=== PATIENT | female | born 1955 | race Caucasian/White ===

== ENCOUNTER → 2019-06-27 16:05 | Outpatient (BNVA) | payer BC, SELFPAY | PROVIDERS: Visit Provider Family Medicine | DX: J45.40 Moderate persistent asthma, uncomplicated (principal); E78.5 Hyperlipidemia, unspecified; F17.219 Nicotine dependence, cigarettes, with unspecified nicotine-induced disorders; N95.2 Postmenopausal atrophic vaginitis | CPT/HCPCS: 36415; 80053 ==

== ENCOUNTER 2019-08-23 09:44 | Outpatient (CLI) | payer BC, SELFPAY ==
--- NOTE | 2019-08-23 10:10 | PFTS_ITS ---
Date of Study:08/23/2019 Date of Dictation: MECHANICS: Forced vital capacity (FVC) is normal. Forced expiratory volume in one second (FEV1) is reduced. FEV1/FVC is reduced. FLOW VOLUME LOOP: Reduced flow at all lung volumes with scooping. LUNG VOLUMES: Not measured DIFFUSING CAPACITY FOR CARBON MONOXIDE: Not measured. INTERPRETATION: The spirometry is consistent with moderate airflow obstruction without any significant postbronchodilator response. MTDD
--- NOTE | 2019-08-23 10:36 | MM_ITS ---
WS: [id number] BILATERAL DIGITAL SCREENING MAMMOGRAPHY WITH CAD CLINICAL INFORMATION: SCREENING HISTORY: Screening mammogram. No current complaints. COMPARISON: June 14, 2018 TECHNIQUE: Bilateral CC and MLO views. FINDINGS: The breasts are composed of heterogeneous fibroglandular density tissue, which can limit the detectio n of small underlying mass lesions. Asymmetric ovoid asymmetries in the upper outer right breast more conspicuous compared to previous. Recommend spot compression views and ultrasound if persistent. Lef t breast is unchanged. Biopsy clip right breast. MM/[place] [id number] IMPRESSION: BI-RADS: 0-Incomplete: Need additional imaging evaluation FOLLOW UP: Need Additional Imaging
== END 2019-08-23 09:45 | disposition home or self-care (01) ==
LOC: RAD 09:46 → RT 09:48
PROVIDERS: Family Provider Family Medicine; PCP Family Medicine; Visit Provider Family Medicine
DX: Z12.31 Encounter for screening mammogram for malignant neoplasm of breast (principal); J45.909 Unspecified asthma, uncomplicated; F17.210 Nicotine dependence, cigarettes, uncomplicated
CPT/HCPCS: 77067; 94060; J7611

== ENCOUNTER 2019-08-30 09:49 | Outpatient (CLI) | payer BC, SELFPAY ==
--- NOTE | 2019-08-30 10:30 | MM_ITS ---
WS: [id number] RIGHT DIGITAL MAMMOGRAPHY WITH CAD CLINICAL INFORMATION: abnormal mammo COMPARISON: August 23, 2019 TECHNIQUE: 3 views of the right breast were obtained. FINDINGS: The right breast is composed of heterogeneous fibroglandular density tissue, which can limit the dete ction of small underlying mass lesions. Again seen are 2 slightly ovoid asymmetries in the upper outer right breast. This is less conspicuous on the spot compression views. Ultrasound is pending. ULTRASOUND BREAST RIGHT TECHNIQUE: Ultrasound right breast focused area of concern. CLINICAL INFORMATION: abnormal mammo COMPARISON: None. FINDINGS: Ultrasound right breast at the 9 to 12:00 positions. Dense underlying breast parenchyma. No cystic or solid lesions. No suspicious lesions to target for biopsy. Normal breast parenchyma. MM/[place] [id number] IMPRESSION: BI-RADS: 2-Benign FOLLOW UP: 1 Year Follow-up Recommend return to annual screening mammography.
--- NOTE | 2019-08-30 11:00 | US_ITS ---
WS: [id number] RIGHT DIGITAL MAMMOGRAPHY WITH CAD CLINICAL INFORMATION: abnormal mammo COMPARISON: August 23, 2019 TECHNIQUE: 3 views of the right breast were obtained. FINDINGS: The right breast is composed of heterogeneous fibroglandular density tissue, which can limit the dete ction of small underlying mass lesions. Again seen are 2 slightly ovoid asymmetries in the upper outer right breast. This is less conspicuous on the spot compression views. Ultrasound is pending. ULTRASOUND BREAST RIGHT TECHNIQUE: Ultrasound right breast focused area of concern. CLINICAL INFORMATION: abnormal mammo COMPARISON: None. FINDINGS: Ultrasound right breast at the 9 to 12:00 positions. Dense underlying breast parenchyma. No cystic or solid lesions. No suspicious lesions to target for biopsy. Normal breast parenchyma. US/US breast RT complete [id number] IMPRESSION: BI-RADS: 2-Benign FOLLOW UP: 1 Year Follow-up Recommend return to annual screening mammography.
== END 2019-08-30 09:50 | disposition home or self-care (01) ==
PROVIDERS: Family Provider Family Medicine; PCP Family Medicine; Visit Provider Family Medicine
DX: R92.8 Other abnormal and inconclusive findings on diagnostic imaging of breast (principal)
CPT/HCPCS: 76641; 77065

== ENCOUNTER → 2019-12-27 10:09 | Outpatient (BNVA) | payer BC, SELFPAY | PROVIDERS: Family Provider Family Medicine; PCP Family Medicine; Visit Provider Family Medicine | DX: E78.5 Hyperlipidemia, unspecified (principal); J45.909 Unspecified asthma, uncomplicated | CPT/HCPCS: 80053; 80061; 85025 ==

== ENCOUNTER → 2020-11-23 08:16 | Outpatient (BNVA) | payer BC, SELFPAY | PROVIDERS: PCP Family Medicine; Visit Provider Family Medicine | DX: E78.5 Hyperlipidemia, unspecified (principal); F41.9 Anxiety disorder, unspecified; F33.9 Major depressive disorder, recurrent, unspecified; F17.219 Nicotine dependence, cigarettes, with unspecified nicotine-induced disorders | CPT/HCPCS: 80053; 80061; 85025 ==

== ENCOUNTER 2021-07-09 08:04 | Outpatient (CLI) | payer BC, SELFPAY ==
--- NOTE | 2021-07-09 08:00 | MM_ITS ---
WS: [email or web address] Exam: [place] [id number] Date/Time of Exam: 07/09/2021 8:10 AM Reason For Exam: screening mammogram VIEWS: MLO and CC views both breasts. Comparison made with prior exam of 03/28/2017, 06/14/2018 and 08/23/2019. Findings: There was no sign of mass, architectural distortion or suspicious calcification in either breast. He terogeneously [place] MM/[place] [id number] Impression: BI-RADS: 2-Benign FOLLOW-UP: 1 Year Follow-up This mammogram was also analyzed by the Computer Aided Detection System R2 Imag e Deckhand Engineer.
== END 2021-07-09 08:05 | disposition home or self-care (01) ==
LOC: RADSHAW 08:08
PROVIDERS: PCP Family Medicine; Visit Provider Family Medicine
DX: Z12.31 Encounter for screening mammogram for malignant neoplasm of breast (principal)
CPT/HCPCS: 77067

== ENCOUNTER → 2021-11-22 08:32 | Outpatient (BNVA) | payer OTHER, MEDICARE, SELFPAY | PROVIDERS: PCP Family Medicine; Visit Provider Family Medicine | DX: E78.5 Hyperlipidemia, unspecified (principal); K52.831 Collagenous colitis; F33.9 Major depressive disorder, recurrent, unspecified; F17.219 Nicotine dependence, cigarettes, with unspecified nicotine-induced disorders | CPT/HCPCS: 80053; 80061; 85025 ==

== ENCOUNTER → 2022-01-19 13:26 | Outpatient (BNVA) | payer MEDICARE, SELFPAY | PROVIDERS: PCP Family Medicine; Referring Provider Family Medicine; Visit Provider Orthopaedic Surgery | DX: M65.311 Trigger thumb, right thumb (principal) | CPT/HCPCS: 20550; 99203 ==

== ENCOUNTER 2022-02-07 12:43 | Outpatient (CLI) | payer MEDICARE, SELFPAY ==
--- NOTE | 2022-02-07 13:00 | XR_ITS ---
WS: [id number] DEXA (DUAL ENERGY X-RAY ABSORPTIOMETRY) Bone mineral density was performed using a [employer] machine. HISTORY: Osteopenia COMPARISON: 06/14/2018 Lumbar spine BMD (L1-L4): 1.050 g/cm2 T score: -1.1 Z score: 0.4 Total hip BMD: Left: 0.646 g/cm2. T score: -2.9 Z score: -1.8 Right: 0.695 g/cm2. T score: -2.5 Z score: -1.4 10 year probability of a major osteoporotic fracture is 54.8%. Compared to the prior study from 06/14/2018. Lumbar spine bone mineral density has increased by 0.2%. Bilateral hips bone mineral density has decreased by 8.0%. XR/XR DEXA axial skeleton* [id number] IMPRESSION: OSTEOPOROSIS based upon the WHO classification for females. Significant decreas e in bone mineral density within the hips since the prior exam. Patient is at significant risk for fracture.
== END 2022-02-07 12:44 | disposition home or self-care (01) ==
PROVIDERS: PCP Family Medicine; Visit Provider Family Medicine
DX: M85.80 Other specified disorders of bone density and structure, unspecified site (principal); M81.0 Age-related osteoporosis without current pathological fracture
CPT/HCPCS: 77080

== ENCOUNTER 2022-03-07 08:37 | Day surgery (SDC) | payer MEDICARE, SELFPAY ==
[2022-03-04 11:33] VITALS: BMI 26.5
--- NOTE | 2022-03-07 08:29 | W.PM.OPSFHP ---
Same Day Surgery H&P Indication for Procedure/HPI DATE OF PROCEDURE: March 07, 2022 CHIEF COMPLAINT/INDICATIONFOR SURGICAL PROCEDURE: Microscopic colitis PREOP DIAGNOSIS: Microscopic colitis PLANNED PROCEDURE: Operation Date: 03/07/22 10:00 Proposed Procedures p EGD and Colonoscopy [id number],R19.7,K52.831(Not Applicable) - Erick Davis MD s Colonoscopy(Not Applicable) - Erick Davis MD Medications/Allergies* Home Medications Medication Instructions Recorded Confirmed Type omeprazole 40 mg capsule,delayed 40 mg PO DAILY PRN Gastric Reflux 03/04/22 03/04/22 History release Allergies/Adverse Reactions Allergy/AdvReac Type Severity Reaction Status Date / Time codeine Allergy Unknown Verified 01/27/22 10:08 Pertinent History/Comorbid Conditions* Medical History (Updated 01/27/22 @ 10:22 by Erick Davis MD) Asthma Atrophic vaginitis Collagenous colitis Dyslipidemia Osteopenia Recurrent depression Surgical History (Updated 06/27/19 @ 15:52 by Carmenza Munguia DO) H/O section H/O: hysterectomy S/P appendectomy Family History (Updated 06/27/19 @ 15:43 by Yolanda Aragon LPN) Alzheimer disease Mother Cancer Mother breast Father lung Social History Smoking and tobacco status: current every day smoker cigarettes Packs smoked per day: 0.5 Alcohol intake: never Pertinent Exam Findings alert, oriented x 3, clear to auscultation bilaterally, regular rate & rhythm, operative site marked and procedure specific exam findings Recommendations Surgery/Procedure today Coding Level of Care Code Acute Network Control Operators Supervisor for Fern Harris
[2022-03-07 09:13] VITALS: BP 119/81; PULSE 99; RESP 18; TEMP 36.1; O2SAT 94
[2022-03-07] MEDS: sodium chloride 0.9% 1,000 ML 30 ML IV (09:32)
--- NOTE | 2022-03-07 09:38 | ANES.PREANE2 ---
Pre-Anesthetic Assessment Height/Weight: Height 1.6 m Weight 68.039 kg Temp Pulse Resp BP Pulse Ox O2 Del Method 97 F L 99 18 119/81 94 03/07/22 09:13 03/07/22 09:13 03/07/22 09:13 03/07/22 09:13 03/07/22 09:13 03/07/22 09:13 Preop Diagnosis: Diarrhea and microscopic colitis Operation Date: 03/07/22 10:00 Proposed Procedures p EGD and Colonoscopy [id number],R19.7,K52.831(Not Applicable) - Erick Davis MD s Colonoscopy(Not Applicable) - Erick Davis MD Familial anesthetic complications: Woke up during colonoscopy Was Beta Jus taken within 24 hours: N/A Was Clonidine taken within 24 hours: N/A Last intake: Intake Last Liquid Date 03/06/22 Last Liquid Time 20:00 Last Solid Date 03/05/22 Last Solid Time 15:00 Social Tobacco and No alcohol Exam alert, oriented x 3, clear to auscultation bilaterally and regular rate & rhythm Airway Mallampati: Class II Dentition: chipped and other (bridge) Pulmonary Asthma GI Gastroesophageal Reflux Disease Neuropsych Anxiety Anesthetic Plan ASA status: 3 Risk of > 500 ml blood loss (7ml/kg in children): No Medications/Allergies Home Medications Medication Instructions Recorded Confirmed Last Taken Type albuterol sulfate 90 mcg/actuation 2 puff inhalation Q4H PRN 04/23/21 03/04/22 02/18/22 Rx aerosol inhaler (ProAir HFA) shortness of breath or wheezing #6.7 grams simvastatin 20 mg tablet 20 mg PO .once at bedtime #90 tabs 11/23/21 03/04/22 03/03/22 Rx budesonide 3 mg See Rx Instructions .Route 01/04/22 03/07/22 03/06/22 Rx capsule,delayed,extended release .COMPLEX #24 caps alendronate 70 mg tablet (Fosamax) 70 mg PO .once weekly #12 tabs 02/09/22 03/04/22 02/28/22 Rx paroxetine HCl 40 mg tablet 40 mg PO DAILY 03/07/22 03/07/22 03/03/22 History Allergies Allergy/AdvReac Type Severity Reaction Status Date / Time codeine Allergy Unknown Verified 01/27/22 10:08 Current Medications Generic Name Dose Route Start Last Admin Trade Name Freq PRN Reason Stop Dose Admin Sodium Chloride 1,000 mls @ 30 mls/hr 03/07/22 09:00 03/07/22 09:32 Sodium Chloride 0.9% IV 03/08/22 08:59 30 mls/hr .Q24H GONZALO Administration PFSH Anesthesia Medical History (Updated 01/27/22 @ 10:22 by Erick Davis MD) Asthma Atrophic vaginitis Collagenous colitis Dyslipidemia Osteopenia Recurrent depression Surgical History H/O section H/O: hysterectomy S/P appendectomy Family History Mother Cancer breast Alzheimer disease Father Cancer lung Social History Smoking and tobacco status: current every day smoker cigarettes Packs smoked per day: 0.5 Alcohol intake: never Data Anesthesia Cardiac Studies: No Data to Display
[2022-03-07 11:35] VITALS: BP 110/69; PULSE 87; RESP 20; TEMP 36.1; O2SAT 96
[2022-03-07 12:01] VITALS: BP 145/74; PULSE 85; RESP 18; O2SAT 92
--- NOTE | 2022-03-07 14:09 | ANE.PACU2 ---
Inpatient post-anesthesia follow up: Airway intact: Yes Vital signs: Temperature 97.0 F Pulse Rate 85 Respiratory Rate 18 Blood Pressure 145/74 Pulse Oximetry 92 Oxygen Delivery Me thod Room Air Oxygen Flow Rate Fraction of Inspir ed Oxygen Hydration adequate: Yes Nausea and vomiting: No Pain level: 1 Mental status: Baseline
[2022-03-08 10:18] LABS: H. Pylori / CLO Test Negative
== END 2022-03-07 12:06 | disposition home or self-care (01) ==
PROVIDERS: PCP Family Medicine; Visit Provider Internal Medicine
PROC: 0DJ08ZZ Inspection of Upper Intestinal Tract, Via Natural or Artificial Opening Endoscopic (ICD-10-PCS; CPT 43235; principal; 2022-03-07 10:00)
PROC: 0DJD8ZZ Inspection of Lower Intestinal Tract, Via Natural or Artificial Opening Endoscopic (ICD-10-PCS; CPT 45378; 2022-03-07 10:00)
DX: K52.832 Lymphocytic colitis (principal); D12.4 Benign neoplasm of descending colon; D12.3 Benign neoplasm of transverse colon; K44.9 Diaphragmatic hernia without obstruction or gangrene; K29.70 Gastritis, unspecified, without bleeding; J45.909 Unspecified asthma, uncomplicated; E78.5 Hyperlipidemia, unspecified; K21.9 Gastro-esophageal reflux disease without esophagitis; F17.210 Nicotine dependence, cigarettes, uncomplicated; Z88.5 Allergy status to narcotic agent; R19.7 Diarrhea, unspecified
CPT/HCPCS: 43239; 45385; 82274; 83630; 87077; 87493; 87506; 88305; J2704; J7030

== ENCOUNTER → 2022-06-02 09:06 | Outpatient (BNVA) | payer MEDICARE, SELFPAY | PROVIDERS: PCP Family Medicine; Visit Provider Family Medicine | DX: R05.9 Cough, unspecified (principal); K52.832 Lymphocytic colitis; F41.1 Generalized anxiety disorder | CPT/HCPCS: 87400; 87426 ==

== ENCOUNTER → 2022-06-30 08:37 | Outpatient (BNVA) | payer MEDICARE, SELFPAY | PROVIDERS: PCP Family Medicine; Visit Provider Family Medicine | DX: R23.3 Spontaneous ecchymoses (principal); Z13.6 Encounter for screening for cardiovascular disorders | CPT/HCPCS: 85025; 85610 ==

== ENCOUNTER 2022-08-16 14:51 | Outpatient (CLI) | payer MEDICARE, SELFPAY ==
--- NOTE | 2022-08-16 15:00 | MM_ITS ---
WS: [id number] BILATERAL 3D TOMOSYNTHESIS DIGITAL SCREENING MAMMOGRAPHY WITH CAD CLINICAL INFORMATION: SCREENING HISTORY: Screening mammogram. No current complaints. COMPARISON: July 09, 2021 TECHNIQUE: Bilateral CC and MLO views. FINDINGS: The breasts are composed of heterogeneous fibroglandular density tissue, which can limit the detectio n of small underlying mass lesions. 6 mm ovoid density anterior RIGHT breast progressed compared to p revious. Recommend spot compression views and ultrasound. LEFT breast is unchanged. Biopsy clip upper outer RIGHT breast. Stable dense breast tissue upper outer breasts bilaterally. MM/[place] [id number] IMPRESSION: BI-RADS: 0-Incomplete: Need additional imaging evaluation FOLLOW UP: Need Additional Imaging Recommend RIGHT breast diagnostic mammography with spot compression views and u ltrasound
== END 2022-08-16 14:52 | disposition home or self-care (01) ==
LOC: RAD 14:55
PROVIDERS: PCP Family Medicine; Visit Provider Family Medicine
DX: Z12.31 Encounter for screening mammogram for malignant neoplasm of breast (principal)
CPT/HCPCS: 77063; 77067

== ENCOUNTER 2022-09-14 12:43 | Outpatient (CLI) | payer MEDICARE, SELFPAY ==
--- NOTE | 2022-09-14 12:52 | MM_ITS ---
WS: [email or web address] RIGHT 3D TOMOSYNTHESIS DIGITAL MAMMOGRAPHY WITH CAD CLINICAL INFORMATION: R92.8 - Other abnormal and inconclusive findings on diagn... HISTORY: Additional views COMPARISON: August 16, 2022 TECHNIQUE: 2 views of the right breast were obtained. FINDINGS: The right breast is composed of heterogeneous fibroglandular density tissue, which can limit the dete ction of small underlying mass lesions. Persistent small 6 mm asymmetric density in the anterior oute r RIGHT breast. Ultrasound described below. ULTRASOUND BREAST RIGHT TECHNIQUE: Ultrasound right breast focused area of concern. CLINICAL INFORMATION: R92.8 - Other abnormal and inconclusive findings on diagn... FINDINGS: Ultrasound RIGHT breast upper outer quadrant 1 to 4:00 position. Normal underlying parenchymal tissue . No cystic or solid lesions. No suspicious findings. No lesions to target for biopsy. MM/[place] [id number] IMPRESSION: BI-RADS: 2-Benign FOLLOW UP: 1 Year Follow-up Recommend return to annual screening mammography.
== END 2022-09-14 12:44 | disposition home or self-care (01) ==
PROVIDERS: PCP Family Medicine; Visit Provider Family Medicine
DX: R92.8 Other abnormal and inconclusive findings on diagnostic imaging of breast (principal)
CPT/HCPCS: 76642; 77061; G0279

== ENCOUNTER → 2022-12-29 08:30 | Outpatient (BNVA) | payer MEDICARE, SELFPAY | PROVIDERS: PCP Family Medicine; Visit Provider Family Medicine | DX: E78.5 Hyperlipidemia, unspecified (principal) | CPT/HCPCS: 80053; 80061; 85025 ==

== ENCOUNTER 2023-01-06 13:58 | Outpatient (CLI) | payer MEDICARE, SELFPAY ==
--- NOTE | 2023-01-06 14:00 | CT_ITS ---
WS: [email or web address] LDCT LUNG CANCER SCREENING TECHNIQUE: Noncontrast CT of the chest with coronal and sagittal reformatted images. CLINICAL INFORMATION: screening COMPARISON: None. DLP: 42.32 mGy.cm DIvol: Mean CTDIvol: 0.70 (mGy) All CT scans at [facility] use at least one of these dose optimization techniques: automat ed exposure control; mA and/or kV adjustment per patient size (includes targeted exams where dose is matched to clinical indication); or iterative reconstruction. FINDINGS: A few tiny nodules in the RIGHT upper lobe anteriorly. Moderate chronic emphysematous collins es. Subsegmental atelectasis in the upper lobes anteriorly. Subsegmental atelectasis RIGHT lower lobe . Aortic calcification. Coronary calcification. No mediastinal or hilar lymphadenopathy. No axillary ly mphadenopathy. Adrenal glands are normal. Normal GE junction. Moderate thoracic kyphosis. Anterior hy pertrophic changes thoracic spine. CT/CT lung screening [id number] IMPRESSION: LUNG-RADS: 2-Benign Appearance or Behavior FOLLOW UP: 12 Month: Continue annual screening with LDCT
== END 2023-01-06 13:59 | disposition home or self-care (01) ==
PROVIDERS: PCP Family Medicine; Visit Provider Family Medicine
DX: Z12.2 Encounter for screening for malignant neoplasm of respiratory organs (principal); F17.219 Nicotine dependence, cigarettes, with unspecified nicotine-induced disorders
CPT/HCPCS: 71271

== ENCOUNTER 2023-06-20 11:52 | Outpatient (CLI) | payer MEDICARE, SELFPAY ==
--- NOTE | 2023-06-20 11:58 | XRR_ITS ---
PROCEDURE INFORMATION: Exam: XR Chest Exam date and time: 06/20/2023 12:22 PM Age: 67 years old Clinical indication: Other: Weight loss TECHNIQUE: Imaging protocol: Radiologic exam of the chest. Views: 2 views. COMPARISON: CR XR ribs RT mn 3V w CXR1V [id number] 01/18/2023 5:35 PM FINDINGS: Lungs: Unremarkable. No consolidation. Pleural spaces: Unremarkable. No pleural effusion. No pneumothorax. Heart/Mediastinum: Unremarkable. No cardiomegaly. Bones/joints: Mild scoliosis with mild multilevel spondylosis. Pectus excavatum. XR/XR chest 2V* [id number] IMPRESSION: No acute disease.
== END 2023-06-20 11:53 | disposition home or self-care (01) ==
LOC: RAD 11:54
PROVIDERS: PCP Family Medicine; Visit Provider Family Medicine
DX: R63.4 Abnormal weight loss (principal); Z13.6 Encounter for screening for cardiovascular disorders; R73.9 Hyperglycemia, unspecified
CPT/HCPCS: 71046; 80053; 83036; 84443; 85025; 86803; 87806

== ENCOUNTER → 2023-07-17 14:41 | Outpatient (BNVA) | payer MEDICARE, SELFPAY | PROVIDERS: PCP Family Medicine; Referring Provider Family Medicine; Visit Provider Surgery | DX: R63.4 Abnormal weight loss (principal); R10.9 Unspecified abdominal pain; K52.831 Collagenous colitis; R19.7 Diarrhea, unspecified | CPT/HCPCS: 99204 ==

== ENCOUNTER 2023-07-19 12:05 | Outpatient (CLI) | payer MEDICARE, SELFPAY | END 2023-07-19 12:06 | disposition home or self-care (01) | LOC: LAB 12:05 | PROVIDERS: PCP Family Medicine; Visit Provider Surgery | DX: R19.7 Diarrhea, unspecified (principal) | CPT/HCPCS: 82274 ==

== ENCOUNTER 2023-07-28 13:23 | Outpatient (CLI) | payer MEDICARE, SELFPAY ==
[2023-07-28] MEDS: iohexol 350 mg/mL 500 mL Btl (per mL) PO (13:57)
--- NOTE | 2023-07-28 14:30 | CT_ITS ---
WS: [id number] CT ABDOMEN AND PELVIS WITH CONTRAST HISTORY: acute weight loss, abdominal pain TECHNIQUE: Imaging performed of the abdomen and pelvis with IV contrast. Single phase imaging of the abdomen. Coronal and sagittal reformats are submitted. All CT scans at [facility] use at [address] one of these dose optimization techniques: automated exposure control; mA and/or kV adjustment per patient size (includes targeted exams where dose is matched to clinical indication); or iterative re construction. IV CONTRAST: Omnipaque 350; 100 mL IV. Oral contrast: Yes. DLP: 248.41 mGy.cm COMPARISON: None available. Lower thorax: Chronic emphysematous changes at the lung bases. Heart is normal size. Small hiatal her mikayla. Liver/biliary system: Liver is mildly enlarged. No mass or bile duct dilatation. Gallbladder: Normal. No gallstones or wall thickening. No pericholecystic fluid. Pancreas: Normal size pancreas and pancreatic duct. No adjacent inflammation. Spleen: Normal size spleen. No mass or infarct. Adrenal glands: Normal. Right kidney: Normal. Left kidney: Mild atrophy of the LEFT kidney within normal enhancement. Aorta: Moderate atherosclerosis with no aneurysm. Lymphadenopathy: None. Free fluid: None. GI tract: Stomach is well distended. No obstruction. There are several loops of small bowel with thic kened liriano and narrowing of the lumen. This is more than typically noted at the jejunal loops of sma ll bowel. Small bowel loops measure up to 11 mm in diameter of the wall thickening. There is a low-at tenuation 6 mm nodule in the proximal duodenum which may be a small lipoma. In the RIGHT lower quadra nt there is an area of rather marked wall thickening. This is asymmetric wall thickening towards the cecum and the terminal ileum which will need to be further evaluated by colonoscopy. There is displac ement of the colonic lumen. There is focal thickening of the ascending colon. The transverse and dist al colon are normal calibers. The wall is not thickened with abnormal enhancement. Abdominal wall: Unremarkable abdominal wall. No hernia. Pelvis: No free fluid or adenopathy within the pelvis. Prior hysterectomy. Bones: Unremarkable. IMPRESSION: 1. Multifocal areas of abnormal small bowel and colonic wall thickening with narrowing of the lumen. Asymmetric wall thickening near the cecum. Areas of wall thickening and luminal narrowing involving the proximal duodenum and the jejunum. There is additional asymmetric wall thickening at the cecum. T hese areas need to be further evaluated for possible neoplasm such as lymphoma. This all may be due t o acute inflammatory process of enterocolitis. Consider evaluation of the cecum and ascending colon b y colonoscopy if this has not been performed recently. 2. No adenopathy and no ascites. 3. Prior hysterectomy and appendectomy. 4. If symptoms persist and colonoscopy is not performed consider short-term follow-up CT abdomen and pelvis with IV and oral contrast after 6 to 8 weeks.
[2023-07-28] MEDS: iohexol 350 mg/mL 500 mL Btl (per mL) IV (14:54)
== END 2023-07-28 13:24 | disposition home or self-care (01) ==
LOC: RAD 13:24
PROVIDERS: PCP Family Medicine; Visit Provider Surgery
DX: R63.4 Abnormal weight loss (principal); R10.9 Unspecified abdominal pain; K63.89 Other specified diseases of intestine; Z90.710 Acquired absence of both cervix and uterus; Z90.89 Acquired absence of other organs
CPT/HCPCS: 74177; Q9967

== ENCOUNTER → 2023-08-01 10:28 | Outpatient (BNVA) | payer MEDICARE, SELFPAY | PROVIDERS: PCP Family Medicine; Visit Provider Surgery | DX: Z09 Encounter for follow-up examination after completed treatment for conditions other than malignant neoplasm (principal) | CPT/HCPCS: 99214 ==

== ENCOUNTER → 2023-09-14 15:00 | Outpatient (BNVA) | payer MEDICARE, SELFPAY | PROVIDERS: PCP Family Medicine; Referring Provider Family Medicine; Visit Provider Dermatology | DX: L82.0 Inflamed seborrheic keratosis (principal); L57.0 Actinic keratosis; L82.1 Other seborrheic keratosis; D69.2 Other nonthrombocytopenic purpura; L81.4 Other melanin hyperpigmentation | CPT/HCPCS: 11104; 17000; 17110; 99203 ==

== ENCOUNTER 2023-10-10 09:15 | Outpatient (CLI) | payer MEDICARE, SELFPAY ==
--- NOTE | 2023-10-10 09:44 | MM_ITS ---
WS: [email or web address] BILATERAL 3D TOMOSYNTHESIS DIGITAL SCREENING MAMMOGRAPHY WITH CAD CLINICAL INFORMATION: SCREENING HISTORY: Screening mammogram. No current complaints. COMPARISON: 2022 TECHNIQUE: Bilateral CC and MLO views. FINDINGS: The breasts are composed of heterogeneous fibroglandular density tissue, which can limit the detectio n of small underlying mass lesions. No suspicious mass, asymmetry, calcifications, or architectural d istortion. No evidence of malignancy. A few tiny incidental punctate calcifications. Biopsy clip RIGH T breast. IMPRESSION: MM/[place] [id number] BI-RADS: 2-Benign FOLLOW UP: 1 Year Follow-up Recommend return to annual screening mammography.
== END 2023-10-10 09:16 | disposition home or self-care (01) ==
LOC: RAD 09:42
PROVIDERS: PCP Family Medicine; Visit Provider Family Medicine
DX: Z12.31 Encounter for screening mammogram for malignant neoplasm of breast (principal)
CPT/HCPCS: 77063; 77067

== ENCOUNTER → 2023-12-01 08:42 | Outpatient (BNVA) | payer MEDICARE, SELFPAY | PROVIDERS: PCP Family Medicine; Visit Provider Family Medicine | DX: E78.5 Hyperlipidemia, unspecified (principal); E53.8 Deficiency of other specified B group vitamins; D53.9 Nutritional anemia, unspecified | CPT/HCPCS: 80053; 80061; 82607; 85025 ==

== ENCOUNTER 2024-03-22 10:00 | Outpatient (CLI) | payer MEDICARE, SELFPAY ==
--- NOTE | 2024-03-22 10:00 | CT_ITS ---
WS: [email or web address] LDCT LUNG CANCER SCREENING HISTORY: annual screen TECHNIQUE: Axial imaging performed from the apices to 1 cm below the costophrenic angles. Coronal and sagittal reformats are submitted with axial MIP series. All CT scans at [facility] use at least one of these dose optimization techniques: automated exposure control; mA and/or kV adjustment per patient size (includes targeted exams where dose is matched to clinical indication); or iterativ e reconstruction. DLP: 43.59 mGy.cm DIvol: Mean CTDIvol: 0.70 (mGy) COMPARISON: 01/06/2023 Diagnostic quality: Satisfactory Lungs: Marked hyperinflation. Dependent changes at the lung bases. New area of subsegmental atelectas is in the RIGHT middle lobe and at the base of the RIGHT upper lobe. No obstructing endobronchial les ions. Heart: Normal size heart with no pericardial effusion.. Other findings: Mild atherosclerosis aorta. Normal size pulmonary artery. No identifiable adenopathy. Small hiatal hernia. No adrenal mass. Increase in thoracic kyphosis. CT/CT lung screening [id number] IMPRESSION: LUNG-RADS: 2-Benign Appearance or Behavior FOLLOW UP: 12 Month: Continue annual screening with LDCT OTHER FINDINGS (S MODIFIER): None.
== END 2024-03-22 10:02 | disposition home or self-care (01) ==
PROVIDERS: PCP Family Medicine Adult Medicine; Visit Provider Family Medicine Adult Medicine
DX: Z12.2 Encounter for screening for malignant neoplasm of respiratory organs (principal); F17.219 Nicotine dependence, cigarettes, with unspecified nicotine-induced disorders; J44.89 Other specified chronic obstructive pulmonary disease; J98.11 Atelectasis; K44.9 Diaphragmatic hernia without obstruction or gangrene; M40.204 Unspecified kyphosis, thoracic region
CPT/HCPCS: 71271

== ENCOUNTER → 2024-05-09 13:43 | Outpatient (BNVA) | payer MEDICARE, SELFPAY | PROVIDERS: PCP Family Medicine Adult Medicine; Visit Provider Family Medicine | DX: R63.4 Abnormal weight loss (principal); D64.9 Anemia, unspecified; D58.2 Other hemoglobinopathies | CPT/HCPCS: 80053; 82728; 83550; 84439; 84443; 84466; 85025; 86140 ==

== ENCOUNTER 2024-06-11 10:10 | Outpatient (CLI) | payer MEDICARE, SELFPAY | END 2024-06-11 10:11 | disposition home or self-care (01) | LOC: SLEEP 10:13 | PROVIDERS: PCP Family Medicine Adult Medicine; Visit Provider Family Medicine Adult Medicine | DX: D58.2 Other hemoglobinopathies (principal) | CPT/HCPCS: 94762 ==

== ENCOUNTER → 2024-09-12 09:53 | Outpatient (BNVA) | payer MEDICARE, SELFPAY | PROVIDERS: PCP Family Medicine; Visit Provider Nurse Practitioner Family | DX: L82.1 Other seborrheic keratosis (principal); L73.8 Other specified follicular disorders; L81.4 Other melanin hyperpigmentation; X32.XXXA Exposure to sunlight, initial encounter; D23.72 Other benign neoplasm of skin of left lower limb, including hip; L57.8 Other skin changes due to chronic exposure to nonionizing radiation | CPT/HCPCS: 99213 ==

== ENCOUNTER 2024-10-10 08:52 | Outpatient (CLI) | payer MEDICARE, SELFPAY ==
--- NOTE | 2024-10-10 09:00 | MM_ITS ---
WS: [email or web address] BILATERAL SCREENING DIGITAL TOMOSYNTHESIS MAMMOGRAM WITH CAD HISTORY: screening COMPARISON: 06/14/2018, 10/10/2023, 09/14/2022 Bilateral CC and MLO views with tomosynthesis and synthetic mammography submitted. Computer aided detection analyzed. Breast composition: The breasts are heterogeneously dense, which may obscure small masses. No suspicious masses, microcalcifications or architectural distortion. Well-circumscribed, encapsulated mass in the lateral LEFT breast contains fat consistent with a hamartoma. Biopsy clip lateral RIGHT breast. MM/MM scr BI tomosynthesis [id number] IMPRESSION: BI-RADS: 2 - Benign FOLLOW UP: 1 Year Follow-up
== END 2024-10-10 08:53 | disposition home or self-care (01) ==
PROVIDERS: PCP Family Medicine; Visit Provider Family Medicine
DX: Z12.31 Encounter for screening mammogram for malignant neoplasm of breast (principal); R92.333 Mammographic heterogeneous density, bilateral breasts; N63.20 Unspecified lump in the left breast, unspecified quadrant
CPT/HCPCS: 77063; 77067

== ENCOUNTER 2024-12-16 15:17 | Outpatient (CLI) | payer MEDICARE, SELFPAY ==
--- NOTE | 2024-12-16 15:28 | XR_ITS ---
WS: [email or web address] XR lumbar spine 2-3V* [id number] REASON FOR EXAM: chronic low back pain FINDINGS: Moderate rotatory dextroscoliosis. Straightening of the lordosis. No significant vertebral body compression deformity or focal vertebral body lesion. Moderate to significant narrowing of the L4-L5 disc space with moderate endplate sclerosis and osteophytosis. Significant narrowing of the L5-S1 joint space with significant endplate sclerosis and large right lateral osteophytosis. Partial sacralization of L5 with right lateral pseudoarthrosis. 2 to 3 mm of anterolisthesis of L5 in relation to L4. XR/XR lumbar spine 2-3V* [id number] IMPRESSION: Degenerative spondylosis of the lumbar spine as above.
--- NOTE | 2024-12-16 15:28 | XR_ITS ---
WS: [email or web address] XR sacrum coccyx min 2V [id number] REASON FOR EXAM: chronic back pain FINDINGS: Moderate degenerative spondylosis at L4-L5 with moderate disc space narrowing and endplate sclerosis and osteophytosis. Significant degenerative spondylosis at L5-S1 with significant joint space narrowing. There is lateral pseudoarthrosis on the right between L5 and S1 and large right lateral L5-S1 osteophyte. No findings of sacroiliitis. No findings of sacral insufficiency fractures. The coccyx is intact without focal abnormality. XR/XR sacrum coccyx min 2V [id number] IMPRESSION: No focal abnormality of the sacrum or coccyx. Significant degenerative spondylosis in the lower lumbar spine.
== END 2024-12-16 15:18 | disposition home or self-care (01) ==
PROVIDERS: PCP Family Medicine; Visit Provider Family Medicine
DX: M51.369 Other intervertebral disc degeneration, lumbar region without mention of lumbar back pain or lower extremity pain (principal); G89.29 Other chronic pain; M41.86 Other forms of scoliosis, lumbar region; R93.7 Abnormal findings on diagnostic imaging of other parts of musculoskeletal system; M25.78 Osteophyte, vertebrae; M43.27 Fusion of spine, lumbosacral region; M47.896 Other spondylosis, lumbar region; M43.16 Spondylolisthesis, lumbar region
CPT/HCPCS: 72100; 72220

== ENCOUNTER 2025-01-14 11:51 | Outpatient (RCR) | payer MEDICARE, SELFPAY | END 2025-01-16 23:59 | disposition home or self-care (01) | LOC: SPT 11:51 | PROVIDERS: PCP Family Medicine; Visit Provider Family Medicine | DX: M54.50 Low back pain, unspecified (principal); G89.29 Other chronic pain | CPT/HCPCS: 97161 ==

== ENCOUNTER 2025-01-17 05:00 | Outpatient (RCR) | payer MEDICARE, SELFPAY | END 2025-02-16 23:59 | disposition home or self-care (01) | LOC: SPT 05:00 | PROVIDERS: PCP Family Medicine; Visit Provider Family Medicine | DX: M54.50 Low back pain, unspecified (principal); G89.29 Other chronic pain | CPT/HCPCS: 97110 ==

== ENCOUNTER 2025-02-27 09:23 | Outpatient (CLI) | payer MEDICARE, SELFPAY ==
--- NOTE | 2025-02-27 09:30 | MR_ITS ---
WS: [email or web address] MRI LUMBAR SPINE NONCONTRAST HISTORY: chronic low back pain, RIGHT leg pain. COMPARISON: None available. TECHNIQUE: Sagittal and axial multisequence imaging is submitted. Mild cervical spine stenosis at C5-6 due to disc osteophyte disease. Mild increase in thoracic kyphosis. RIGHT curvature lumbar spine. No marrow edema or acute fracture. Mild narrowing of the L4-5 and L5-S1 disc spaces. Conus terminates normally at L1-2 disc level. L1-L2: Mild bilateral facet arthritis. No stenosis. L2-L3: Mild annular disc bulging with very mild encroachment upon the subarticular recesses. Moderate ligamentum flavum and facet arthritis. No significant stenosis. L3-L4: Mild annular disc bulging with mild effacement of CSF and encroachment upon the subarticular recesses. Moderate ligamentum flavum and facet arthritis. Mild subarticular recess stenosis. L4-L5: Diffuse annular disc bulging with osteophytic ridging. Central disc protrusion with slightly greater contact on the traversing RIGHT L5 nerve root in the subarticular recess. Bilateral foraminal disc protrusions. Mild ligamentum flavum and moderate facet arthritis. High-grade central with bilate ral subarticular recess and moderate foraminal stenosis. There is disc and osteophyte encroachment upon the L4 and L5 nerve roots. L5-S1: Diffuse annular disc bulging. Disc contacts the S1 nerve roots, RIGHT greater than LEFT. Moderate central and bilateral subarticular recess stenosis. Moderate RIGHT foraminal stenosis due to disc osteophyte disease. Mild stenosis on the LEFT. Paravertebral soft tissues are negative. MR/MR lumbar spine wo con* [id number] IMPRESSION: 1. Mild degenerative RIGHT curvature lumbar spine. 2. No acute fractures. 3. L4-5: Central disc protrusion extending greater into the RIGHT subarticular recess contacting the RIGHT L5 traversing nerve root. 4. L4-5: High-grade central with bilateral subarticular recess and moderate fo raminal stenosis. There is disc and osteophyte contact bilaterally on the L4 an d L5 nerve roots. 5. L5-S1: Disc bulging contacts the S1 nerve roots, RIGHT greater than LEFT. M oderate central, bilateral subarticular recess and RIGHT foraminal stenosis. Mi ld stenosis on the LEFT. 6. L2-3 and L3-4: Mild subarticular recess stenosis.
== END 2025-02-27 09:24 | disposition home or self-care (01) ==
LOC: RAD 09:24
PROVIDERS: PCP Family Medicine; Visit Provider Family Medicine
DX: M54.50 Low back pain, unspecified (principal); G89.29 Other chronic pain
CPT/HCPCS: 72148

== ENCOUNTER → 2025-03-11 08:55 | Outpatient (BNVA) | payer MEDICARE, SELFPAY | PROVIDERS: PCP Family Medicine; Referring Provider Family Medicine; Visit Provider Anesthesiology Pain Medicine | DX: M54.50 Low back pain, unspecified (principal); G89.29 Other chronic pain; M51.16 Intervertebral disc disorders with radiculopathy, lumbar region | CPT/HCPCS: 99204 ==

== ENCOUNTER → 2025-03-25 12:42 | Outpatient (BNVA) | payer MEDICARE, SELFPAY | PROVIDERS: PCP Family Medicine; Visit Provider Anesthesiology Pain Medicine | DX: M54.16 Radiculopathy, lumbar region (principal) | CPT/HCPCS: 64483; 64484; J1100; J3490; J9999 ==

== ENCOUNTER → 2025-04-08 10:25 | Outpatient (BNVA) | payer MEDICARE, SELFPAY | PROVIDERS: PCP Family Medicine; Visit Provider Anesthesiology Pain Medicine | DX: M51.16 Intervertebral disc disorders with radiculopathy, lumbar region (principal); G89.29 Other chronic pain | CPT/HCPCS: 99214 ==

== ENCOUNTER 2025-05-01 09:02 | Outpatient (CLI) | payer MEDICARE, SELFPAY | END 2025-05-01 09:03 | disposition home or self-care (01) | LOC: LAB 05-03 07:23 | PROVIDERS: PCP Family Medicine; Visit Provider Family Medicine | DX: E78.5 Hyperlipidemia, unspecified (principal) | CPT/HCPCS: 80053; 80061; 85025 ==

== ENCOUNTER 2025-05-07 15:16 | Outpatient (CLI) | payer MEDICARE, SELFPAY ==
--- NOTE | 2025-05-07 15:30 | XR_ITS ---
WS: [email or web address] SCREENING DEXA SCAN UN[place] CLINICAL INFORMATION: osteoporosis COMPARISON: 2021 FINDINGS: The L1-L4 bone mineral density measures 1.028 g/cm2. This corresponds to a T score score of -1.3 and Z score of 0.6. Left femoral neck bone mineral density measures 0.648 g/cm2. This corresponds to a T score of -2.9 and Z score of -1.4. Right femoral neck bone mineral density measures 0.670 g/cm2. This corresponds to a T score -2.7of and Z score of -1.2. Mean femoral neck bone mineral density measures 0.659 g/cm2. This corresponds to a T score of -2.8 and Z score of -1.3. XR/XR DEXA axial skeleton* [id number] IMPRESSION: Osteopenia lumbar spine. Osteoporosis femoral necks. Patient's FRAX calculated 10 year probability for major osteoporotic fracture i s 38.4% and osteoporotic hip fracture is 21.9%. Bone density lumbar spine decreased -2.1% Bone density femoral necks decreased -1.6%
== END 2025-05-07 15:17 | disposition home or self-care (01) ==
LOC: RAD 15:17
PROVIDERS: PCP Family Medicine; Visit Provider Family Medicine
DX: Z13.820 Encounter for screening for osteoporosis (principal); M81.0 Age-related osteoporosis without current pathological fracture; M85.89 Other specified disorders of bone density and structure, multiple sites
CPT/HCPCS: 77080

== ENCOUNTER 2025-05-14 13:38 | Outpatient (CLI) | payer MEDICARE, SELFPAY ==
--- NOTE | 2025-05-14 14:00 | CT_ITS ---
WS: [id number] LDCT LUNG CANCER SCREENING TECHNIQUE: Noncontrast CT of the chest with coronal and sagittal reformatted images. CLINICAL INFORMATION: screening COMPARISON: 2023 DLP: 52.37 mGy.cm DIvol: Mean CTDIvol: 0.70 (mGy) All CT scans at [facility] use at least one of these dose optimization techniques: automated exposure control; mA and/or kV adjustment per patient size (includes targeted exams where dose is matched to clinical indication); or iterative reconstruction. FINDINGS: Subsegmental atelectasis RIGHT upper lobe anteriorly. Subsegmental atelectasis in the lung bases and LEFT upper lobe. Mild thoracic curve. Moderate thoracic kyphosis. Hypertrophic changes thoracic spine. Aortic calcification. Coronary calcification. Tiny esophageal hiatal hernia. CT/CT lung screening [id number] IMPRESSION: LUNG-RADS: 1-Negative FOLLOW UP: 12 Month: Continue annual screening with LDCT
== END 2025-05-14 13:39 | disposition home or self-care (01) ==
LOC: RAD 13:39
PROVIDERS: PCP Family Medicine; Visit Provider Family Medicine
DX: F17.219 Nicotine dependence, cigarettes, with unspecified nicotine-induced disorders (principal); Z12.2 Encounter for screening for malignant neoplasm of respiratory organs; J98.11 Atelectasis; M40.04 Postural kyphosis, thoracic region; M40.204 Unspecified kyphosis, thoracic region; I70.0 Atherosclerosis of aorta; I25.10 Atherosclerotic heart disease of native coronary artery without angina pectoris; M89.30 Hypertrophy of bone, unspecified site
CPT/HCPCS: 71271

== ENCOUNTER 2025-05-20 16:30 | Inpatient (IN) | payer MEDICARE, SELFPAY ==
[2025-05-20] VITALS (9 sets, daily range): BP systolic 131–163; BP diastolic 62–83; PULSE 61–91; RESP 19–22; TEMP 37.1; O2SAT 89–93; BMI 23.0
--- NOTE | 2025-05-20 16:54 | ECG_ITS ---
[facility] Date: 2025-05-20 Pat Name: Fatmata Brice Department: Room: Gender: Female Physical Trainer: : 1955 Requested By: Miles Sneed Order Number: [id number] Go MD: Jess Nuñez M.D. Measurements Intervals [place] Rate: 92 P: 72 VA: 148 QRS: 65 QRSD: 77 T: 69 QT: 328 QTc: 407 Interpretive Statements SINUS RHYTHM POSSIBLE LEFT ATRIAL ENLARGEMENT [-0.1mV P-WAVE IN V1/V2] POSSIBLE RIGHT VENTRICULAR CONDUCTION DELAY [RSR (QR) IN V1/V2] No previous ECG available for comparison Electronically Signed On 05-20-2025 18:55:59 ALLEY TENDER by Jess Nuñez M.D. [id number]
--- NOTE | 2025-05-20 18:17 | XRR_ITS ---
PROCEDURE INFORMATION: Exam: XR Chest Exam date and time: 05/20/2025 6:18 PM Age: 69 years old Clinical indication: Pain; Chest pressure; Additional info: Chest pain TECHNIQUE: Imaging protocol: Radiologic exam of the chest. Views: 1 view. COMPARISON: 1. CT lung screening [id number] 05/14/2025 1:48 PM 2. 06/20/2023 chest x-ray FINDINGS: Lungs: Background of emphysema. Anterior lung opacities near the heart borders, better seen on CT. These findings could reflect volume loss. Pleural spaces: Unremarkable. No pleural effusion. No pneumothorax. Heart/Mediastinum: Unremarkable. No cardiomegaly. Bones/joints: Unremarkable. XR/XR chest 1V portable [id number] IMPRESSION: Anterior lung opacities may reflect volume loss.No acute cardiopulmonary findings.
[2025-05-20 18:24] LABS: Hematocrit 49.3 % (36-47); Hemoglobin 16.00 g/dL (11.27-16.99); Mean Corpuscular HGB Conc 32.5 g/dL (30-55); Mean Corpuscular Hemoglobin 31.6 pg (27-33); Mean Corpuscular Volume 97.4 fl (85-98); Nucleated Red Blood Cells % 0 %; Platelet Count 236 10^3/cmm (157-399); Red Blood Count 5.06 10^6/uL (3.85-5.65); White Blood Count 10.25 10^3/uL (3.29-11.43)
[2025-05-20 18:59] LABS: Troponin(5th) Baseline 11 ng/L (0-10)
[2025-05-20 19:03] LABS: Alanine Aminotransferase 13 U/L (0-33); Albumin Level 4.2 g/dL (3.5-5.2); Alkaline Phosphatase 69 U/L (35-105); Anion Gap 13.3 (5-19); Aspartate Amino Transferase 14 U/L (0-32); Blood Urea Nitrogen 12 mg/dL (8-23); Calcium 9.2 mg/dL (8.5-10.5); Carbon Dioxide 29 mmol/L (22-29); Chloride 104 mmol/L (98-107); Globulin 2.2 g/dL (1.3-4.6); Glucose 100 mg/dL (65-115); Osmolality Calculated 294 mOsm/kg (285-295); Potassium 4.3 mmol/L (3.5-5.1); Sodium 142 mmol/L (136-145); Total Protein 6.4 g/dL (6.6-8.7)
--- NOTE | 2025-05-20 19:12 | W.ED.SOB ---
HPI - SOB/Dyspnea General: Chief Complaint: Shortness of Breath/Dyspnea Stated Complaint: cp, sob, sore throat, upper back pain Time Seen by Provider: 05/20/25 18:16 History of Present Illness: HPI Narrative: 61-year-old female presents emergency room complaining of shortness of breath and squeezing chest discomfort this progressively worsening over the last 3 days she is getting it both with exertion and at rest resolves with a few minutes of rest when is precipitated by exertion she has no known history of coronary artery disease she has not had any recent fever sweats chills or productive cough she does have a known history of COPD. No previous stress test Associated symptoms: Reports chest pain and orthopnea; Deny abdominal pain or fever(s) Related Data Home Medications ?Medication ?Instructions ?Recorded ?Confirmed budesonide 6 mg capsule,extended 3 mg PO DAILY 12/16/24 05/01/25 release Previous Rx's ?Medication ?Instructions ?Recorded Overnight pulse oximetry #1 ea 05/09/24 oxygen 2L by NC #1 ea 07/05/24 albuterol sulfate 90 mcg/actuation See Rx Instructions .Route 08/26/24 aerosol inhaler .COMPLEX #9 grams alendronate 70 mg tablet (Fosamax) 70 mg PO .once weekly #12 tabs 08/26/24 simvastatin 20 mg tablet See Rx Instructions .Route 03/10/25 .COMPLEX #90 tabs aripiprazole 5 mg tablet 5 mg PO DAILY #90 tabs 04/07/25 duloxetine 60 mg capsule,delayed 60 mg PO DAILY #90 caps 04/07/25 release fluticasone fur. 200 mcg-umeclid 1 inh inhalation DAILY 90 days 05/01/25 62.5 mcg-vilant 25 mcg #180 ea inhalat.powder (Trelegy Ellipta) mirtazapine 30 mg tablet (Remeron) 30 mg PO .qhs #90 tabs 05/01/25 Allergies Allergy/AdvReac Type Severity Reaction Status Date / Time codeine Allergy Unknown Verified 05/01/25 08:35 Review of Systems Const: Denies: fever(s) or chills Card: Reports: chest pain, dyspnea on exertion and orthopnea Resp: Reports: dyspnea GI: Denies: abdominal pain : Denies: dysuria, urinary frequency or urinary urgency Musc: Denies: neck pain or back pain Skin/Breast: Denies: rash FOR[facility]LY [facility], 1928–1983 ED PFSH: Medical History (Updated 05/01/25 @ 09:02 by Carmenza Munguia DO) Enrolled in chronic care management Microscopic colitis [facility] Nocturnal hypoxemia 06/11 overnight pulse ox Polycythemia Elevated hemoglobin due to oxygen desats at night Pigmented skin lesion suspicious for malignant neoplasm History of colon polyps Post-menopausal COPD with asthma Atrophic vaginitis Osteopenia Recurrent depression Surgical History Hx of cataract surgery OU Hx of colonoscopy with polypectomy 02/2022 Dr Davis history of polyps; 08.11.23 [facility]: 7 polyps; tubular adenoma--repeat 2025 History of esophagogastroduodenoscopy (EGD) 2021 H/O: hysterectomy and BSO; done for excessive menstruation H/O section X 2 S/P appendectomy Family History Mother Cancer breast Father Cancer lung Social History Smoking and tobacco/nicotine status: heavy tobacco/nicotine user cigarettes Packs smoked per day: 1 Alcohol intake: never Substance/Drug Use: never Household members: spouse Marital status: Number of children: 2 Highest education level completed: Some College, No Degree Current occupational status: retired Previous occupational history: medical coding Physical Exam Const: COMMON NORMALS: no acute distress GENERAL APPEARANCE: cooperative and comfortable ORIENTATION/CONSCIOUSNESS: Yes awake, Yes oriented to person, Yes oriented to place and Yes oriented to time HENMT: COMMON NORMALS: normocephalic, atraumatic and hearing grossly normal bilaterally HEAD & SCALP: normocephalic and atraumatic Resp: COMMON NORMALS: normal respiratory effort, No retractions, No use of accessory muscles and clear to auscultation bilaterally AUSCULTATION: clear to auscultation bilaterally Cardio: COMMON NORMALS: regular rate, regular rhythm and No murmurs present (Cardio) RATE: regular rate RHYTHM: regular rhythm GI: COMMON NORMALS: Soft to palpation and No hepatosplenomegaly present AUSCULTATION: Yes normoactive bowel sounds PALPATION: Yes Soft to palpation, No Tenderness to palpation present (GI), No Guarding due to palpation present (GI) and Yes No hepatosplenomegaly present Extremity: COMMON NORMALS: normal to inspection, capillary refill normal, no clubbing, cyanosis or edema, no calf tenderness and no pedal edema Neuro: SENSORIUM/ORIENTATION: Yes oriented to person, Yes oriented to place and Yes oriented to time Skin: COMMON NORMALS: no rashes or lesions noted GENERAL SKIN EXAM: no rashes or lesions noted Course Vital Signs: Vital signs: Vital Signs Temperature 98.7 F 05/20/25 16:58 Pulse Rate 91 05/20/25 16:58 Respiratory Rate 20 H 05/20/25 16:58 Blood Pressure 163/83 05/20/25 16:58 Pulse Oximetry 89 L 05/20/25 16:58 Oxygen Delivery Me thod Room Air 05/20/25 16:58 MDM - SOB/Dyspnea Lab Data 05/20/25 17:50 05/20/25 18:33 Labs/Radiology: Radiology Impressions Chest X-Ray 05/20/25 18:17 IMPRESSION: Anterior lung opacities may reflect volume loss.No acute cardiopulmonary findings. Laboratory Results WBC 10.25 10^3/uL (3.29-11.43) 05/20/25 17:50 RBC 5.06 10^6/uL (3.85-5.65) 05/20/25 17:50 Hgb 16.00 g/dL (11.27-16.99) 05/20/25 17:50 Hct 49.3 % (36-47) H 05/20/25 17:50 MCV 97.4 fl (85-98) 05/20/25 17:50 MCH 31.6 pg (27-33) 05/20/25 17:50 MCHC 32.5 g/dL (30-55) 05/20/25 17:50 RDW 12.5 % (12.1-15.1) 05/20/25 17:50 Plt Count 236 10^3/cmm (157-399) 05/20/25 17:50 MPV 10.9 fL (7.4-10.4) H 05/20/25 17:50 Neut % (Auto) 63.2 % 05/20/25 17:50 Lymph % (Auto) 25.3 % 05/20/25 17:50 [place] % (Auto) 8.5 % 05/20/25 17:50 Eos % (Auto) 1.8 % 05/20/25 17:50 Baso % (Auto) 0.9 % 05/20/25 17:50 Neut # (Auto) 6.49 10^3/uL (1.8-7.7) 05/20/25 17:50 Lymph # (Auto) 2.6 10^3/uL (0.8-4.8) 05/20/25 17:50 [place] # (Auto) 0.9 10^3/uL (0.2-0.9) 05/20/25 17:50 Eos # (Auto) 0.2 10^3/uL (0.0-0.8) 05/20/25 17:50 Baso # (Auto) 0.1 10^3/uL (0.0-0.1) 05/20/25 17:50 Nucleated RBC % (auto) 0 % 05/20/25 17:50 Nucleated RBCs # 0.0 /100WBC 05/20/25 17:50 Sodium 142 mmol/L (136-145) 05/20/25 18:33 Potassium 4.3 mmol/L (3.5-5.1) 05/20/25 18:33 Chloride 104 mmol/L (98-107) 05/20/25 18:33 Carbon Dioxide 29 mmol/L (22-29) 05/20/25 18:33 Anion Gap 13.3 (5-19) 05/20/25 18:33 BUN 12 mg/dL (8-23) 05/20/25 18:33 Creatinine 0.7 mg/dL (0.5-0.9) 05/20/25 18:33 GFR Calculation 83.2 mL/min (90-130) L 05/20/25 18:33 Glucose 100 mg/dL (65-115) 05/20/25 18:33 Calculated Osmolality 294 mOsm/kg (285-295) 05/20/25 18:33 Calcium 9.2 mg/dL (8.5-10.5) 05/20/25 18:33 Total Bilirubin 0.3 mg/dL (0.15-1.2) 05/20/25 18:33 AST 14 U/L (0-32) 05/20/25 18:33 ALT 13 U/L (0-33) 05/20/25 18:33 Alkaline Phosphatase 69 U/L (35-105) 05/20/25 18:33 Troponin T Baseline 11 ng/L (0-10) H 05/20/25 18:33 Total Protein 6.4 g/dL (6.6-8.7) L 05/20/25 18:33 Albumin 4.2 g/dL (3.5-5.2) 05/20/25 18:33 Globulin 2.2 g/dL (1.3-4.6) 05/20/25 18:33 Discharge Plan Discharge Condition: Stable Prescriptions: No Action alendronate [Fosamax] 70 mg tablet 70 mg PO .once weekly Qty: 12 2RF albuterol sulfate 90 mcg/actuation HFA aerosol inhaler See Rx Instructions .ROUTE .COMPLEX Qty: 9 5RF Dose Instruction: INHALE 2 PUFFS BY MOUTH EVERY 4 HOURS NEEDED FOR SHORTNESS OF BREATH OR WHEEZING Rx Instructions: INHALE 2 PUFFS BY MOUTH EVERY 4 HOURS NEEDED FOR SHORTNESS OF BREATH OR WHEEZING aripiprazole 5 mg tablet 5 mg PO DAILY Qty: 90 1RF duloxetine 60 mg capsule,delayed release(DR/EC) 60 mg PO DAILY Qty: 90 1RF (DME) Overnight pulse oximetry See Rx Instructions .Route .MEDSUPPLY Qty: 1 0RF Rx Instructions: fax to AT HOME (DME) oxygen 2L by NC See Rx Instructions .Route .MEDSUPPLY Qty: 1 0RF Rx Instructions: As directed budesonide 6 mg capsule, extended release 3 mg PO DAILY Rx Instructions: X 8 weeks mirtazapine [Remeron] 30 mg tablet 30 mg PO .qhs Qty: 90 1RF Trelegy Ellipta 200-62.5-25 mcg blister with device 1 inh inhalation DAILY 90 Days Qty: 180 1RF simvastatin 20 mg tablet See Rx Instructions .ROUTE .COMPLEX Qty: 90 2RF Dose Instruction: TAKE 1 TABLET BY MOUTH EVERY DAY AT BEDTIME Rx Instructions: TAKE 1 TABLET BY MOUTH EVERY DAY AT BEDTIME Referrals: Carmenza Munguia DO [Primary Care Provider, Family Practice] Print Language: Luxembourger Coding Level of Care Code ED Instant Potato Processor for Breeg Steven
--- NOTE | 2025-05-20 19:49 | PC.NURSE ---
pt denies pain at this time.
--- NOTE | 2025-05-20 19:50 | PC.NURSE ---
Pharmacy called for current updated weight/ Pt weighed in weight bed in room. 131lb. Weight entered.
--- NOTE | 2025-05-20 20:21 | P.HP_ITS ---
Providers/Chief Complaint 2 Primary Care Provider: Carmenza Munguia DO Chief Complaint: cp, sob, sore throat, upper back pain History of Present Illness Fatmata Brice is a 69 year old female with history significant for chronic noctunral hypoxia(uses O2 at night), COPD, and tobacco use, who presents with complaints of chest pain. She states the chest pain is present in the central chest with activity and with rest and is associated with shortness of breath. The complaints have been there for the past 2-3 days, not constant, but described as a squeezing sensation. She also endorses uppper back pain and sore throat. There is no radiation to the chest pain and it is rated a 2 or 3 out of 10 in intensity. She otherwise denies nausea, vomiting, diarrhea, or abdominal pain. Medications/Allergies Home Medications ?Medication ?Instructions ?Recorded ?Confirmed ?Last Taken ?Type Overnight pulse oximetry #1 ea 05/09/24 05/21/25 Unkn own Rx oxygen 2L by NC #1 ea 07/05/24 05/21/25 Unkn own Rx albuterol sulfate 90 mcg/actuation See Rx Instructions .Route 08/26/24 05/21/25 Unknown Rx aerosol inhaler .COMPLEX #9 grams alendronate 70 mg tablet (Fosamax) 70 mg PO .once week ly #12 tabs 08/26/24 05/21/25 05/19/25 Rx budesonide 6 mg capsule,extended 3 mg PO DAILY 5 05/21/25 Unknown History release simvastatin 20 mg tablet See Rx Instructions .Route 0 03/10/25 05/21/25 Unknown Rx .COMPLEX #90 tabs aripiprazole 5 mg tablet 5 mg PO DAILY #90 tabs 04/0705/21/25 Unknown Rx duloxetine 60 mg capsule,delayed 60 mg PO DAILY #90 ca ps 04/07/25 05/21/25 Unknown Rx release fluticasone fur. 200 mcg-umeclid 1 inh inhalation [place] Y 90 days 05/01/25 05/21/25 Unknown Rx 62.5 mcg-vilant 25 mcg #180 ea inhalat.powder (Trelegy Ellipta) mirtazapine 30 mg tablet (Remeron) 30 mg PO .qhs #90 t abs 05/01/25 05/21/25 Unknown Rx Allergies Allergy/AdvReac Type Severity Reaction Status Date / Time codeine Allergy Unknown Verified 05/01/25 08:35 PFSH Acute 2 PFSH: Medical History (Updated 05/21/25 @ 01:42 by Leon Leyva MD) Enrolled in chronic care management Microscopic colitis [facility] Nocturnal hypoxemia 06/11 overnight pulse ox Polycythemia Elevated hemoglobin due to oxygen desats at night Pigmented skin lesion suspicious for malignant neoplasm History of colon polyps Post-menopausal COPD with asthma Atrophic vaginitis Osteopenia Recurrent depression Surgical History Hx of cataract surgery OU Hx of colonoscopy with polypectomy 02/2022 Dr Davis history of polyps; 08.11.23 [facility]: 7 polyps; tubular adenoma--repeat 2025 History of esophagogastroduodenoscopy (EGD) 2021 H/O: hysterectomy and BSO; done for excessive menstruation H/O section X 2 S/P appendectomy Family History Mother Cancer breast Father Cancer lung Social History Smoking and tobacco/nicotine status: heavy tobacco/nicotine user cigarettes Packs smoked per day: 1 Alcohol intake: never Substance/Drug Use: never Household members: spouse Marital status: Number of children: 2 Highest education level completed: Some College, No Degree Current occupational status: retired Previous occupational history: medical coding Vitals/I&O/Wt Last Vital Signs Temp 98.7 F 05/20/25 16:58 Pulse 83 05/20/25 19:37 Resp 22 H 05/20/25 19:37 BP 147/62 05/20/25 19:37 Pulse Ox 93 05/20/25 19:37 O2 Del Method Nasal Cannula 05/20/25 19:37 O2 Flow Rate 2 05/20/25 19:37 Weight last 48 hrs Weight 59.421 kg Weight 58.967 kg Physical Exam 2 Const: COMMON NORMALS: no acute distress and patient oriented x3 Chest: COMMONS NORMALS: normal palpation of entire chest wall Resp: OTHER: mild bilateral expiratory wheezes noted Cardio: COMMON NORMALS: no JVD, regular rate and regular rhythm GI: COMMON NORMALS: Normal to inspection, nondistended, normoactive bowel sounds present Neuro: COMMON NORMALS: patient oriented x3, CN's II-XII intact bilaterally and moves all extremities Skin: COMMON NORMALS: no wounds Data 05/20/25 17:50 05/20/25 18:33 A&P Assessment and plan 1. Chest pain at rest: - ED has started on heparin drip and given ASA - Will place for stress test in the AM - NPO after midnight for this - Keep on telemetry - Continue home statin - Update lipid panel - Consult cardiology in the AM 2. Acute exacerbation of chronic obstructive pulmonary disease (COPD): - Scheduled duonebs - Hold antibiotics. I am not suspecting an infectious component - Prednisone 40mg PO daily 3. Acute on chronic hypoxic respiratory failure: - O2 use as needed PDMP PDMP Reviewed: Not Reviewed Attestations 2 Medical Necessity Statement*: Patient will require greater than 2 midnights of inpatient care to evaluate and manage her chest pain, copd exacerbation, and respiratory failure Coding Level of Care Code Acute Code for [facility] Diagnoses Chest pain at rest R07.9 Acute exacerbation of chronic obstructive pulmonary disease (COPD) J44.1 Acute on chronic hypoxic respiratory failure J96.21
[2025-05-20 21:04] LABS: Troponin 5 2HR 9.71 ng/L (0-10)
[2025-05-20] MEDS: heparin 5,000 unit/mL INJ 1 mL IVP (21:05)
[2025-05-20] MEDS: heparin drip 25,000 UNIT/500 ML PREMIX 14.16 UNIT IV (21:07)
[2025-05-20 21:08] LABS: Troponin 5 2HR Delta -1.29 ABS# (0-10)
[2025-05-20] MEDS: nitroglycerin 1 gm/inch oint Pkt 0.5 INCH TOPICAL (21:32)
--- NOTE | 2025-05-20 21:43 | ECG_ITS ---
[employer] Test Date: 2025-05-20 Pat Name: Fatmata Brice Department: Room: Gender: Female Insurance Underwriter Sales: : 1955 Requested By: Miles Sneed Order Number: [id number] Go MD: Jess Nuñez M.D. Measurements Intervals [place] Rate: 70 P: 67 AR: 161 QRS: 71 QRSD: 81 T: 75 QT: 391 QTc: 422 Interpretive Statements SINUS RHYTHM POSSIBLE RIGHT VENTRICULAR CONDUCTION DELAY [RSR (QR) IN V1/V2] Compared to ECG 05/20/2025 16:54:51 No significant changes Electronically Signed On 05-21-2025 23:51:56 ELECTROTHERAPIST by Jess Nuñez M.D. [email or web address]
[2025-05-21] VITALS (9 sets, daily range): BP systolic 106–161; BP diastolic 51–68; PULSE 62–72; RESP 16–24; TEMP 36.8; O2SAT 91–92
[2025-05-21 01:40] LABS: Troponin 5 6HR 13.20 ng/L (0-10); Troponin 5 6HR Delta 2.20 ng/L (0-12)
--- NOTE | 2025-05-21 02:23 | NMCV_ITS ---
NM cherry perf SPECT r/s* [id number] Fatmata Brice Age: 69 Gender: F : 1955 Exam Date: 05/21/2025 07:38 Ordering Phys: Leon Leyva MD Technologist: CHARAN Mary Exam Location: [facility] Indications: cp STRESS TEST Please see separate stress test report in [facility] for full findings IMAGE PROTOCOL Rest/Stress 1 Lexiscan Day Radiopharmaceutical Dose (mCi) Administration Site Administered by Rest: Tc-99m 10.5 IV CHARAN Mary Sestamibi Stress:Tc-99m 32.7 IV CHARAN Rivera Sestamibi Rest: 21-May-2025 60 Discovery 630 Stress: 21-May-2025 30 Discovery 630 0.4mg Lexiscan. Supine position only as patient was unable to lay prone. SPECT RESULTS Technical Quality: Good Raw Data Analysis: Normal Image Corrections: No attenuation or motion correction applied Summed Stress Score: 0 Summed Rest Score: 0 Summed Difference Score: 0 PERFUSION FINDINGS Uniform myocardial tracer uptake with no significant perfusion abnormalities FUNCTIONAL RESULTS (calculated via Gated SPECT) Stress Image LV EF (%): 81 Stress EDV (mL):57 TID: 1.2 Stress ESV (mL):11 FUNCTIONAL FINDINGS: Segmental wall motion analysis revealing no gross wall motion abnormalities IMPRESSIONS 1. Myocardial perfusion imaging revealing uniform myocardial tracer uptake with no significant perfusion abnormalities 2. Normal LV ejection fraction of 81% 3. LV wall motion analysis revealing no gross wall motion abnormalities. 4. Normal LV volume 5. Elevated transient ischemic dilatation ratio 1.2 may suggest endocardial ischemia. But the positive predictive value of this finding is limited, especially in the absence of any other abnormal objective findings. Clinical correlation is recommended Low probability for coronary ischemia, based on the above findings Dr Jess Nuñez MD FAC (Electronically Signed) Final Date: 21 May 2025 09:34 S
[2025-05-21 04:23] LABS: Hematocrit 44.7 % (36-47); Hemoglobin 14.70 g/dL (11.27-16.99); Mean Corpuscular HGB Conc 32.9 g/dL (30-55); Mean Corpuscular Hemoglobin 32.0 pg (27-33); Mean Corpuscular Volume 97.4 fl (85-98); Nucleated Red Blood Cells % 0 %; Platelet Count 229 10^3/cmm (157-399); Red Blood Count 4.59 10^6/uL (3.85-5.65); White Blood Count 8.45 10^3/uL (3.29-11.43)
[2025-05-21 04:36] LABS: Partial Thromboplastin Time 53.0 SECONDS (23.9-36.7)
[2025-05-21 04:40] LABS: Anion Gap 11.1 (5-19); Blood Urea Nitrogen 9 mg/dL (8-23); Calcium 8.8 mg/dL (8.5-10.5); Carbon Dioxide 27 mmol/L (22-29); Chloride 105 mmol/L (98-107); Cholesterol 150 mg/dL (0-200); Glucose 96 mg/dL (65-115); HDL Cholesterol 61 mg/dL (60-100); Osmolality Calculated 287 mOsm/kg (285-295); Potassium 4.1 mmol/L (3.5-5.1); Sodium 139 mmol/L (136-145); Triglycerides 75 mg/dL (0-150)
[2025-05-21] MEDS: heparin 5,000 unit/mL INJ 1 mL IVP (04:50)
--- NOTE | 2025-05-21 07:14 | ECG_ITS ---
[employer] Test Date: 2025-05-21 Pat Name: Fatmata Brice Department: Room: 112 Gender: Female Starter Cup Powder Mixer: : 1955 Requested By: Leon Mckeon Order Number: [id number] Go MD: Jess Nuñez M.D. Interpretive Statements Lung unchanged pre/post procedure; Intraprocedure shortess of breath; Symptoms resoled by discharge PROCEDURE: At the baseline, the EKG revealed normal sinus rhythm with normal ST Ts. The baseline heart was 67 bpm with a blood pressue of 135/63 mm of Hg Lexiscan was infused over a period of 20 seconds. A total of 0.4 milligrams of Lexiscan was infused. The stress phase was continued for a total of 5 minutes. Heart rate at the end of the stress phase was 94 bpm with a blood pressure 138/57 mm of Hg. The EKG at the peak infusion revealed no significant changes. Sestamibi was injected 20 seconds after the Lexiscan infusion. Heart rate at the end of the recovery phase was 93 bpm with a blood pressure of 142/49 mm of Hg. CONCLUSION: 1. No significant EKG changes with the LexiScan infusion 2. No LexiScan induced chest pain or cardiac arrhythmia 3. Normal blood pressure and heart rate response 4. Sestamibi/sestamibi perfusion scan pending; see separate report. Electronically Signed On 05-25-2025 20:40:50 BOOKKEEPING SERVICE SALES AGENT by Jess Nuñez M.D. [email or web address]
--- NOTE | 2025-05-21 08:34 | PC.CHAP ---
Pastoral Care Encounter/Spiritual Assessment Type of Contact [] Declined copier technician visit [] Patient/Family/Request visit [] Outpatient visit [] Follow-up visit [] Physician referral [] Code/Alert [] Routine visit [] Staff referral [] Actively dying [] Patient sleeping [] Family support [] [x] Out of room [] Palliative care [] [] Receiving care in room [] Pre-surgical visit [] Trauma [] Long length of stay [] ICU visit [] Other: Relational/Emotional Strength [] Patient feels connected with others/family/visitors/staff [] Distress [] Loneliness/isolation [] Abandonment Spirituality of Patient [] Person of [place] [] Attends Alevism of their [place] [] Believes in Prayer [] Reads Bible or Gnosticism materials [] There are Spiritual issues to be addressed Youth Teacher Interventions [] Prayer [] Active listening [] Non-anxious presence [] Spiritual/emotional support [] Crisis/trauma care [] Spiritual counseling [] Bereavement support [] Provided bereavement packet [] Provided Bible/devotional materials [] Provided toy/stuffed animal, coloring book to patient or family member [] Provided Communion [] Anointing/[place] [] Salvation [] Completed spiritual assessment [] Other: Impact on Illness or Injury [] Angry [] Fearful [] Anxious [] Often cries [] Exhaustion [] Unable to work [] Unable to attend orthodoxy [] Unable to walk/stand [] Unable to read [] Unable to drive [] Unable to eat/drink [] Unable to sleep [] Unable to be with family [] Patient intubated [] Other: Summary Time spent with patient
--- NOTE | 2025-05-21 08:59 | PC.NURSE ---
Patient off the floor to CDL. Spouse is at bedside.
--- NOTE | 2025-05-21 09:03 | PC.NURSE ---
Patient returned to floor at this time via wheelchair. She is s/p cardiac stress test.
--- NOTE | 2025-05-21 10:08 | P.CONIM_ITS ---
<Statement entered by Rich Hazel MD - 05/21/25 17:48> Patient was evaluated and cared for in conjunction with an advanced practice practitioner. I personally examined the patient and reviewed the chart and all pertinent data including imaging, telemetry, and laboratory results. I discussed the patient in detail with the advanced practice practitioner. Please see their note for complete H&P testing result and agreed upon plan of care for the patient. Providers/Reason For Consult 2 Consulting Physician/Specialty*: Dr. Hazel Reason for Consult*: Chest pain Requesting Physician: Dr. Monk Attending Physician: Shanti Kemp, DEVELOPMENT MGR, COMPUTER CONSULTANT Primary Care Provider: Carmenza Munguia DO History of Present Illness History of Present Illness Fatmata Brice is a very pleasant 69 year old female with no known cardiac history per patient history of COPD, hypercholesterolemia, heavy smoker, hypertension comes in to the ER yesterday evening due to increased chest pain and shortness of breath x 3 days. She states this is never happened before. She states that the pain remained persistent over those 3 days and did not get worse or improved. She states it was substernal with rest and exertion and radiated to the back. Troponins were negative so far. EKG did not show any acute changes. She does not have any chest pain at this time. Was given Nitro paste, aspirin 324 mg with improvement. She did have previous CT of the lung that showed coronary calcification. Denies any family hx of heart disease. Labs are stable. She got a stres test this AM. Chest x-ray showed emphysema without cardiomegaly or pleural effusion. Review of Systems 2 Narrative: Consitutional: denies fever, chills, body aches, or changes in appetite, denies abnormal weight loss Eyes: Denies changes in vision Card: Denies chest pain at this time but reports previous chest pain x3 days, denies palpitations, irregular heart rhythm, edema, syncope, shortness of breath, orthopnea, leg pain with exertion Resp: reports shortness of breath on exertion, denies hemoptysis, denies cough GI: denies abdominal pain, denies nausea or voimting, denies blood in stool : denies blood in urine, denies dysuria Musc: Denies extremity pain, denies limited range of motion or recent injury Skin: Denies rash, lesions, or wounds, denies changes to skin color Neuro: Denies nubmness in extremities, h/a, s/s of stroke Felipe: Denies easy bruiding/bleeding All: Denies s/s of allergies Medications/Allergies Home Medications ?Medication ?Instructions ?Recorded ?Confirmed ?Last Taken ?Type Overnight pulse oximetry #1 ea 05/09/24 05/21/25 Unkn own Rx oxygen 2L by NC #1 ea 07/05/24 05/21/25 Unkn own Rx albuterol sulfate 90 mcg/actuation See Rx Instructions .Route 08/26/24 05/21/25 Unknown Rx aerosol inhaler .COMPLEX #9 grams alendronate 70 mg tablet (Fosamax) 70 mg PO .once week ly #12 tabs 08/26/24 05/21/25 05/19/25 Rx budesonide 6 mg capsule,extended 3 mg PO DAILY 5 05/21/25 Unknown History release simvastatin 20 mg tablet See Rx Instructions .Route 0 03/10/25 05/21/25 Unknown Rx .COMPLEX #90 tabs aripiprazole 5 mg tablet 5 mg PO DAILY #90 tabs 04/0705/21/25 Unknown Rx duloxetine 60 mg capsule,delayed 60 mg PO DAILY #90 ca ps 04/07/25 05/21/25 Unknown Rx release fluticasone fur. 200 mcg-umeclid 1 inh inhalation [place] Y 90 days 05/01/25 05/21/25 Unknown Rx 62.5 mcg-vilant 25 mcg #180 ea inhalat.powder (Trelegy Ellipta) mirtazapine 30 mg tablet (Remeron) 30 mg PO .qhs #90 t abs 05/01/25 05/21/25 Unknown Rx nitroglycerin 0.4 mg sublingual 0.4 mg sublingual Q5M PRN Chest 05/21/25 Unknown Rx tablet Pain #20 tabs Allergies Allergy/AdvReac Type Severity Reaction Status Date / Time codeine Allergy Unknown Verified 05/01/25 08:35 Current Medications Generic Name Dose Route Start Last Admin Trade Name Freq PRN Reason Stop Dose Admin Albuterol/Ipratropium 3 ml 05/21/25 08:00 05/21/25 08:50 Ipratropium-Albuterol 3 Ml Neb INHALATION Not Given QID.RESPIRATORY GONZALO Aripiprazole 5 mg 05/21/25 05:00 05/21/25 04:48 Aripiprazole 10 Mg Tablet PO 5 mg DAILY GONZALO Administration Budesonide 0.5 mg 05/21/25 08:00 05/21/25 08:50 Budesonide 0.5 Mg/2 Ml Neb INHALATION Not Given BID.RESPIRATORY GONZALO Duloxetine HCl 60 mg 05/21/25 05:00 05/21/25 04:48 Duloxetine 60 Mg Capsule PO 60 mg DAILY GONZALO Administration Heparin Sodium (Porcine) 0 unit 05/20/25 19:15 05/21/25 04:50 Heparin 5,000 Unit/Ml Inj 1 Ml IVP 1,200 unit PRN PRN Administration Heparin Weight Based Protocol -Subsequent Bolus Protocol Heparin Sodium/Sodium Chloride 25,000 unit in 500 mls @ 14.304 mls/hr 05/20/25 19:15 05/21/25 04:50 Heparin Drip IV 13 unit/kg/hr CONT GONZALO 15.34 mls/hr Protocol Titration 12 UNIT/KG/HR PFSH Acute 2 PFSH: Medical History (Updated 05/21/25 @ 01:42 by Leon Leyva MD) Enrolled in chronic care management Microscopic colitis [facility] Nocturnal hypoxemia 06/11 overnight pulse ox Polycythemia Elevated hemoglobin due to oxygen desats at night Pigmented skin lesion suspicious for malignant neoplasm History of colon polyps Post-menopausal COPD with asthma Atrophic vaginitis Osteopenia Recurrent depression Surgical History Hx of cataract surgery [facility] Hx of colonoscopy with polypectomy 02/2022 Dr Davis history of polyps; 2.23.24 [facility]: 7 polyps; tubular adenoma--repeat 2025 History of esophagogastroduodenoscopy (EGD) 2021 H/O: hysterectomy and BSO; done for excessive menstruation H/O section X 2 S/P appendectomy Family History Mother Cancer breast Father Cancer lung Social History Smoking and tobacco/nicotine status: heavy tobacco/nicotine user cigarettes Packs smoked per day: 1 Alcohol intake: never Substance/Drug Use: never Household members: spouse Marital status: Number of children: 2 Highest education level completed: Some College, No Degree Current occupational status: retired Previous occupational history: medical coding Vitals/I&O/Wt Last Vital Signs Temp 98.3 F 05/21/25 08:00 Pulse 68 05/21/25 09:00 Resp 21 H 05/21/25 08:00 BP 161/65 05/21/25 09:00 Pulse Ox 92 05/21/25 08:00 O2 Del Method Nasal Cannula 05/21/25 03:36 O2 Flow Rate 2 05/20/25 21:30 05/20/25 05/21/25 05/21/25 22:59 06:59 14:59 Intake Total 229.268 / 229.268 960 / 960 Balance 229.268 / 229.268 960 / 960 Weight last 48 hrs Weight 131 lb 4.8 oz Weight 132 lb 1.6 oz Weight 131 lb Weight 130 lb Physical Exam 2 Narrative: General: No apparent distress, healthy appearing, well nourished HENMT: normoceophalic Muskuloskeletal: Full ROM Respiratory: Normal respiratory effort, inspiratory wheezing bilateral posterior lower lobes, no use of accessory muscles Cardio: No JVD, regular rate, regular rhythm, S1 S2 normal, no murmurs, peripheral pulses 2+ radial palpated bilaterally GI: Normal to inspection, nondistended Extremities: Full ROM, normal, normal capillary refill, no cyanosis or edema Neuro: Alert and oriented x4, no focal motor deficits Psych: Affect normal, denies suicidal ideation, mental status grossly normal Skin: No rashes or lesions noted, no wounds Data 05/21/25 03:43 05/21/25 03:43 A&P Assessment and plan 1. Chest pain at rest: 2. Acute exacerbation of chronic obstructive pulmonary disease (COPD): 3. Acute on chronic hypoxic respiratory failure: Plan: Chest pain- Stress test showed no significant perfusion abnormalities. Normal EF. No wall motion abnormalities. Troponins are negative. No acute EKG changes. From cardiology perspective, can be discharged home on isosorbide mononitrate 30 mg daily. Monitor for h/a. Will give nitro sublingual as well prn severe chest pain episodes. Patient to f/u in clinic in 2 weeks. If she continues to have issues with chest pain, may consider [facility] for further investigation but at this time, patient is stable for discharge. PDMP PDMP Reviewed: Not Reviewed Consult Attestations 2 Medical Necessity Statement: May be discharged from cardiology perspective. Coding Level of Care Code Acute Code for Chg Fwd Diagnoses Chest pain at rest R07.9 Acute exacerbation of chronic obstructive pulmonary disease (COPD) J44.1 Acute on chronic hypoxic respiratory failure J96.21
[2025-05-21 11:14] LABS: Partial Thromboplastin Time 55.7 SECONDS (23.9-36.7)
--- NOTE | 2025-05-21 14:07 | PM.DCS ---
Discharge Providers Date of Admission: 05/20/25 21:45 Date of Discharge: May 21, 2025 Attending Provider at Admission: Leon Leyva MD Attending Provider at Discharge: RELL Hannon, NEPHROLOGIST Primary Care Provider: Carmenza Munguia DO Diagnoses at Discharge Discharge Diagnosis 1. Chest pain at rest: Details from hospital stay: Chest pain at rest: - ED has started on heparin drip and given ASA - Will place for stress test in the AM - NPO after midnight for this - Keep on telemetry - Continue home statin - Update lipid panel - Cardiology consulted; stress test WNL Patient resting comfortable this morning without complaint. Stress test WNL. DC with Isosorbide Mononitrate and follow up with Cardiology in two weeks. Reason for Visit Reason for Visit: cp, sob, sore throat, upper back pain Hospital Course Hospital Course 05/20/25 Fatmata Brice is a 69 year old female with history significant for chronic noctunral hypoxia(uses O2 at night), COPD, and tobacco use, who presents with complaints of chest pain. She states the chest pain is present in the central chest with activity and with rest and is associated with shortness of breath. The complaints have been there for the past 2-3 days, not constant, but described as a squeezing sensation. She also endorses uppper back pain and sore throat. There is no radiation to the chest pain and it is rated a 2 or 3 out of 10 in intensity. She otherwise denies nausea, vomiting, diarrhea, or abdominal pain. 05/21/25 Patient resting comfortable this morning without complaint. Stress test WNL. DC with Isosorbide Mononitrate and follow up with Cardiology in two weeks. Physical Exam Narrative: General: No apparent distress, healthy appearing, well nourished HENMT: normoceophalic Muskuloskeletal: Full ROM Respiratory: Normal respiratory effort, inspiratory wheezing bilateral posterior lower lobes, no use of accessory muscles Cardio: No JVD, regular rate, regular rhythm, S1 S2 normal, no murmurs, peripheral pulses 2+ radial palpated bilaterally GI: Normal to inspection, nondistended Extremities: Full ROM, normal, normal capillary refill, no cyanosis or edema Neuro: Alert and oriented x4, no focal motor deficits Psych: Affect normal, denies suicidal ideation, mental status grossly normal Skin: No rashes or lesions noted, no wounds Discharge Data Studies Completed and Pending Completed Studies During Hospitalization Category Date Time Status Cardiac Stress Test MIBI [Sestamibi Stress Test Request Exams 05/21/25 07:14 Draft ] Routine XR chest 1V portable [id number] Stat Exams 05/20/25 18:17 Completed NM myocardial perfusion stress rest [NM cherry perf SPECT Nuc Med 05/21/25 02:23 Completed r/s* [id number]] Routine Pending at discharge Category Date Time Status Platelet Count Q2D Lab 05/22/25 04:00 Ordered Platelet Count Q2D Lab 05/24/25 04:00 Ordered CV. echo complete* [id number] Routine Ultrasound 05/21/25 08:18 Ordered Radiology Impressions Chest X-Ray 05/20/25 18:17 IMPRESSION: Anterior lung opacities may reflect volume loss.No acute cardiopulmonary findings. Laboratory Results WBC 8.45 10^3/uL (3.29-11.43) 05/21/25 03:43 RBC 4.59 10^6/uL (3.85-5.65) 05/21/25 03:43 Hgb 14.70 g/dL (11.27-16.99) 05/21/25 03:43 Hct 44.7 % (36-47) 05/21/25 03:43 MCV 97.4 fl (85-98) 05/21/25 03:43 MCH 32.0 pg (27-33) 05/21/25 03:43 MCHC 32.9 g/dL (30-55) 05/21/25 03:43 RDW 12.3 % (12.1-15.1) 05/21/25 03:43 Plt Count 229 10^3/cmm (157-399) 05/21/25 03:43 MPV 10.1 fL (7.4-10.4) 05/21/25 03:43 Neut % (Auto) 59.3 % 05/21/25 03:43 Lymph % (Auto) 28.3 % 05/21/25 03:43 [place] % (Auto) 9.2 % 05/21/25 03:43 Eos % (Auto) 2.0 % 05/21/25 03:43 Baso % (Auto) 0.8 % 05/21/25 03:43 Neut # (Auto) 5.01 10^3/uL (1.8-7.7) 05/21/25 03:43 Lymph # (Auto) 2.4 10^3/uL (0.8-4.8) 05/21/25 03:43 [place] # (Auto) 0.8 10^3/uL (0.2-0.9) 05/21/25 03:43 Eos # (Auto) 0.2 10^3/uL (0.0-0.8) 05/21/25 03:43 Baso # (Auto) 0.1 10^3/uL (0.0-0.1) 05/21/25 03:43 Nucleated RBC % (auto) 0 % 05/21/25 03:43 Nucleated RBCs # 0.0 /100WBC 05/21/25 03:43 APTT 55.7 SECONDS (23.9-36.7) H 05/21/25 10:35 Sodium 139 mmol/L (136-145) 05/21/25 03:43 Potassium 4.1 mmol/L (3.5-5.1) 05/21/25 03:43 Chloride 105 mmol/L (98-107) 05/21/25 03:43 Carbon Dioxide 27 mmol/L (22-29) 05/21/25 03:43 Anion Gap 11.1 (5-19) 05/21/25 03:43 BUN 9 mg/dL (8-23) 05/21/25 03:43 Creatinine 0.5 mg/dL (0.5-0.9) 05/21/25 03:43 GFR Calculation 122.7 mL/min (90-130) 05/21/25 03:43 Glucose 96 mg/dL (65-115) 05/21/25 03:43 Calculated Osmolality 287 mOsm/kg (285-295) 05/21/25 03:43 Calcium 8.8 mg/dL (8.5-10.5) 05/21/25 03:43 Total Bilirubin 0.3 mg/dL (0.15-1.2) 05/20/25 18:33 AST 14 U/L (0-32) 05/20/25 18:33 ALT 13 U/L (0-33) 05/20/25 18:33 Alkaline Phosphatase 69 U/L (35-105) 05/20/25 18:33 Troponin T Baseline 11 ng/L (0-10) H 05/20/25 18:33 Troponin T 120 Minute 9.71 ng/L (0-10) 05/20/25 20:32 Delta Troponin T -1.29 ABS# (0-10) L 05/20/25 20:32 Troponin T Hi Sens 6Hr 13.20 ng/L (0-10) H 05/21/25 00:58 Troponin T Hi Sens 6Hr Delta 2.20 ng/L (0-12) 05/21/25 00:58 Total Protein 6.4 g/dL (6.6-8.7) L 05/20/25 18:33 Albumin 4.2 g/dL (3.5-5.2) 05/20/25 18:33 Globulin 2.2 g/dL (1.3-4.6) 05/20/25 18:33 Triglycerides 75 mg/dL (0-150) 05/21/25 03:43 Cholesterol 150 mg/dL (0-200) 05/21/25 03:43 LDL Cholesterol, Calc 74 mg/dL (50-129) 05/21/25 03:43 HDL Cholesterol 61 mg/dL (60-100) 05/21/25 03:43 LDL/HDL Ratio 1.21 RATIO (0.00-3.22) 05/21/25 03:43 Cholesterol/HDL Ratio 2.46 mg/dL (0.0-4.40) 05/21/25 03:43 Vitals Last Vital Signs Temp 98.3 F 05/21/25 08:00 Pulse 66 05/21/25 12:00 Resp 18 05/21/25 12:00 BP 118/52 05/21/25 12:00 Pulse Ox 91 05/21/25 12:00 O2 Del Method Nasal Cannula 05/21/25 11:35 O2 Flow Rate 3 05/21/25 11:35 Discharge Plan Discharge Patient Disposition: Home Condition: Stable Prescriptions: New isosorbide mononitrate 30 mg tablet extended release 24 hr 30 mg PO DAILY Qty: 30 1RF No Action alendronate [Fosamax] 70 mg tablet 70 mg PO .once weekly Qty: 12 2RF albuterol sulfate 90 mcg/actuation HFA aerosol inhaler See Rx Instructions .ROUTE .COMPLEX Qty: 9 5RF Dose Instruction: INHALE 2 PUFFS BY MOUTH EVERY 4 HOURS NEEDED FOR SHORTNESS OF BREATH OR WHEEZING Rx Instructions: INHALE 2 PUFFS BY MOUTH EVERY 4 HOURS NEEDED FOR SHORTNESS OF BREATH OR WHEEZING aripiprazole 5 mg tablet 5 mg PO DAILY Qty: 90 1RF duloxetine 60 mg capsule,delayed release(DR/EC) 60 mg PO DAILY Qty: 90 1RF (DME) Overnight pulse oximetry See Rx Instructions .Route .MEDSUPPLY Qty: 1 0RF Rx Instructions: fax to AT HOME (DME) oxygen 2L by NC See Rx Instructions .Route .MEDSUPPLY Qty: 1 0RF Rx Instructions: As directed budesonide 6 mg capsule, extended release 3 mg PO DAILY mirtazapine [Remeron] 30 mg tablet 30 mg PO .qhs Qty: 90 1RF Trelegy Ellipta 200-62.5-25 mcg blister with device 1 inh inhalation DAILY 90 Days Qty: 180 1RF simvastatin 20 mg tablet See Rx Instructions .ROUTE .COMPLEX Qty: 90 2RF Dose Instruction: TAKE 1 TABLET BY MOUTH EVERY DAY AT BEDTIME Rx Instructions: TAKE 1 TABLET BY MOUTH EVERY DAY AT BEDTIME [employer] [place] for DC: Cardiology Discharge Order = DC NOW: Discharge Order (Routine); Ordered 05/21/25 Ordered By: Shanti Kemp Referrals: Carmenza Munguia DO [Primary Care Provider, Family Practice] - 06/02/25 9:00 am Sarah Sharp FNP [Nurse Practitioner, Cardiology] - 06/16/25 1:30 pm Douglas Hazel MD [Referring, Cardiology] - 06/25/25 1:30 pm Discharge Diet: Advance as tolerated and Usual diet Discharge Activity: Resume usual activity and Increase activity as tolerated Patient Instructions: COPD, Chronic Respiratory Failure (DC), Chest Pain Stoplight, Opioid Safety, Patient Portal & Vidya Instructions Discharge Attestations Time Spent in Discharge Care*: greater than 30 min Quality Metrics Clinical Quality Measures [ No reported AMI, CVA or VTE this stay] Coding Level of Care Code 41398 Diagnoses Chest pain at rest R07.9
--- NOTE | 2025-05-21 14:43 | PC.NURSE ---
Patient discharged to home. Instruction provided regarding follow up appointments and new medications. Patient and spouse both verbalized complete understanding. Patient taken by wheelchair to private vehicle with spouse by side. Patient denies pain or needs. No distress observed. New medications transmitted to [facility] per patient request.
== END 2025-05-21 14:46 | disposition home or self-care (01) | DRG 189 ==
LOC: ER 23:03 → CSU 05-21 00:21
PROVIDERS: Admitting Provider Family Medicine; Emergency Provider Family Medicine; PCP Family Medicine; Visit Provider Clinical Nurse Specialist Acute Care
DX: J96.21 Acute and chronic respiratory failure with hypoxia (principal); J44.1 Chronic obstructive pulmonary disease with (acute) exacerbation; Z87.891 Personal history of nicotine dependence; Z90.49 Acquired absence of other specified parts of digestive tract; Z79.51 Long term (current) use of inhaled steroids
CPT/HCPCS: 36415; 71045; 78452; 80048; 80053; 80061; 84484; 85025; 85730; 93005; 93017; 94640; 96365; 96366; 96375; 99285; A9500; J1644; J2785; J7512; J9999

== ENCOUNTER → 2025-06-16 13:12 | Outpatient (BNVA) | payer MEDICARE, SELFPAY | PROVIDERS: PCP Family Medicine; Visit Provider Nurse Practitioner Family | DX: E78.5 Hyperlipidemia, unspecified (principal); Z51.89 Encounter for other specified aftercare; R07.9 Chest pain, unspecified; F17.219 Nicotine dependence, cigarettes, with unspecified nicotine-induced disorders | CPT/HCPCS: 99214 ==